=== PATIENT | female | born 1970 | race Caucasian/White ===

== ENCOUNTER 2017-04-21 11:18 | Emergency (ER) | payer SELFPAY ==
[~2017-04-21] VITALS: Ht 160 cm; Wt 93.9 kg
[~2017-04-21 11:18] MED LIST: ACETAMINOPHEN-H1 TA2 PO; BACTRIM DS 8001 TA1 PO; CLARITIN10 MG PO; CLEOCIN HCL150 MG PO; CLINDAMYCIN HC300 MG PO; COMBIVENT1 ARO IH; CORDROL20 MG PO; CYCLOBENZAPRINE5 M3 PO; DICLOFENAC SOD50 MG PO; DOXYCYCLINE MO100 MG PO; LEVOFLOXACIN500 MG PO; MEDROL DOSEPAK4 MG PO; Motrin,Rufen800 MG PO; PYRIDIUM200 M1 PO; TOPROL XL50 M1 PO; TOPROL XL50 MG PO; TRAMADOL HCL50 MG PO; TYLENOL W/CODEI1 TA2 PO; WELLBUTRIN75 MG PO; ZITHROMAX Z PA250 MG PO; ZYRTEC10 M3 PO
[2017-04-21] MEDS ORDERED: PYRIDIUM100 MG PO (11:33)
[2017-04-21] MEDS ORDERED: SEPTRA DS 800 M1 TAB PO (11:33)
[2017-04-21 11:45] LABS: BASO # 0.1 10*3/uL (0.0-0.1); BASO % 0.7 % (0.0-1.0); EOS # 0.1 10*3/uL (0.0-0.4); HEMATOCRIT 31.9 % (37.0-47.0); HEMOGLOBIN 9.6 g/dl (12.0-16.0); LYMPH # 2.3 10*3/uL (1.3-4.4); LYMPH % 23.3 % (27.0-41.0); MEAN CELL VOLUME 88.1 fl (81.0-99.0); MEAN CORPUSCULAR HGB 26.5 pg (27.0-31.0); MEAN CORPUSCULAR HGB CONC 30.1 g/dl (33.0-37.0); MEAN PLATELET VOLUME 10.6 fl (9.6-12.3); MONO # 0.8 10*3/uL (0.1-1.0); MONO % 8.1 % (3.0-9.0); NEUT # 6.5 10*3/uL (2.3-7.9); NEUT % 66.6 % (47.0-73.0); PLATELET COUNT AUTOMATED 324 10*3/uL (130-400); RED BLOOD COUNT 3.62 10*6/uL (4.10-5.10); RED CELL DISTRI WIDTH 16.2 % (0-14.5); WHITE BLOOD COUNT 9.8 10*3/uL (4.8-10.8)
[2017-04-21 11:47] LABS: BILIRUBIN 2+ (NEGATIVE); BLOOD 3+ (NEGATIVE); CLARITY CLOUDY (CLEAR); GLUCOSE TRACE (NEGATIVE); KETONE TRACE (NEGATIVE); LEUKO ESTERASE 3+ (NEGATIVE); NITRITE POSITIVE (NEGATIVE); PROTEIN 3+ (NEGATIVE); SPECIFIC GRAVITY 1.025 (1.005-1.030); UROBILINOGEN >= 8.0 E.U./dl (0.2-1.0)
[2017-04-21 12:05] LABS: COLOR ORANGE (YELLOW)
[2017-04-21 12:06] LABS: ALBUMIN 3.5 gm/dl (3.1-4.5); ALKALINE PHOSPHATASE 68 U/L (45-117); BILIRUBIN, TOTAL 0.2 mg/dl (0.2-1.0); BUN 9 mg/dl (7-24); CARBON DIOXIDE 26 mmol/L (21-32); CHLORIDE 106 mmol/L (98-107); EST GLOM FILT AFRICAN AMERICAN > 60 ml/min; GLUCOSE 87 mg/dL (65-99); POTASSIUM 4.5 mmol/L (3.5-5.1); SGOT/AST 24 IU/L (3-35); SGPT/ALT 12 U/L (12-78); SODIUM 140 mmol/L (136-145); TOTAL PROTEIN 7.2 gm/dL (6.4-8.2)
[2017-04-21 12:06] LABS: BACTERIA TRACE; RBC TNTC rbc/hpf (0-2); URINE REFLEX COMMENT YES (NO); WBC TNTC wbc/hpf (0-5)
== END 2017-04-21 13:53 | disposition home or self-care (01) ==
LOC: ED 11:18
PROVIDERS: Nurse Practitioner Family
DX: N39.0 Urinary tract infection, site not specified (principal); Z88.0 Allergy status to penicillin; Z88.6 Allergy status to analgesic agent; Z88.8 Allergy status to other drugs, medicaments and biological substances; Z87.891 Personal history of nicotine dependence; Z90.49 Acquired absence of other specified parts of digestive tract

== ENCOUNTER 2017-04-28 08:10 | Emergency (ER) | payer SELFPAY ==
[~2017-04-28] VITALS: Ht 160 cm; Wt 90.7 kg
[~2017-04-28 08:10] MED LIST changes: +PYRIDIUM100 MG PO; +SEPTRA DS 800 M1 TAB PO
[2017-04-28 08:58] LABS: BASO % 0.4 % (0.0-1.0); EOS # 0.1 10*3/uL (0.0-0.4); EOS % 0.6 % (1.0-4.0); HEMATOCRIT 32.2 % (37.0-47.0); HEMOGLOBIN 9.7 g/dl (12.0-16.0); LYMPH # 1.9 10*3/uL (1.3-4.4); LYMPH % 21.6 % (27.0-41.0); MEAN CORPUSCULAR HGB 26.2 pg (27.0-31.0); MEAN CORPUSCULAR HGB CONC 30.1 g/dl (33.0-37.0); MEAN PLATELET VOLUME 10.3 fl (9.6-12.3); MONO # 0.5 10*3/uL (0.1-1.0); MONO % 6.1 % (3.0-9.0); NEUT # 6.3 10*3/uL (2.3-7.9); NEUT % 71.1 % (47.0-73.0); PLATELET COUNT AUTOMATED 369 10*3/uL (130-400); RED CELL DISTRI WIDTH 16.4 % (0-14.5); WHITE BLOOD COUNT 8.9 10*3/uL (4.8-10.8)
[2017-04-28 09:14] LABS: ALBUMIN 3.8 gm/dl (3.1-4.5); ALKALINE PHOSPHATASE 71 U/L (45-117); BILIRUBIN, TOTAL 0.3 mg/dl (0.2-1.0); BUN 15 mg/dl (7-24); C-REACTIVE PROTEIN 0.64 MG/DL (0-0.3); CARBON DIOXIDE 27 mmol/L (21-32); CHLORIDE 109 mmol/L (98-107); EST GLOM FILT AFRICAN AMERICAN > 60 ml/min; GLUCOSE 88 mg/dL (65-99); MAGNESIUM 2.1 mg/dL (1.5-2.1); POTASSIUM 4.2 mmol/L (3.5-5.1); SGOT/AST 24 IU/L (3-35); SGPT/ALT 11 U/L (12-78); SODIUM 139 mmol/L (136-145); TOTAL PROTEIN 7.9 gm/dL (6.4-8.2)
[2017-04-28 09:34] LABS: BILIRUBIN NEGATIVE (NEGATIVE); BLOOD 2+ (NEGATIVE); CLARITY SL CLOUDY (CLEAR); COLOR YELLOW (YELLOW); GLUCOSE NEGATIVE (NEGATIVE); KETONE NEGATIVE (NEGATIVE); LEUKO ESTERASE 3+ (NEGATIVE); NITRITE NEGATIVE (NEGATIVE); PH 5.5 (5.0-9.0); PROTEIN TRACE (NEGATIVE); SPECIFIC GRAVITY 1.025 (1.005-1.030); UROBILINOGEN 0.2 E.U./dl (0.2-1.0)
[2017-04-28 09:59] LABS: BACTERIA 3+; RBC 21-30 rbc/hpf (0-2); URINE REFLEX COMMENT YES (NO); WBC TNTC wbc/hpf (0-5)
[2017-04-28] MEDS ORDERED: Motrin,Rufen800 MG PO ×2 (10:13→10:15)
[2017-04-28] MEDS ORDERED: CIPRO500 MG PO (10:13)
== END 2017-04-28 11:06 | disposition home or self-care (01) ==
LOC: ED 08:10
PROVIDERS: Emergency Medicine
DX: N39.0 Urinary tract infection, site not specified (principal); Z88.0 Allergy status to penicillin; Z88.6 Allergy status to analgesic agent; Z88.8 Allergy status to other drugs, medicaments and biological substances; Z87.891 Personal history of nicotine dependence

== ENCOUNTER 2017-05-24 06:05 | Emergency (ER) | payer OTHER ==
[~2017-05-24] VITALS: Ht 162.5 cm; Wt 68.0 kg
[~2017-05-24 06:05] MED LIST changes: +CIPRO500 MG PO
[2017-05-24 06:27] LABS: BILIRUBIN NEGATIVE (NEGATIVE); BLOOD 1+ (NEGATIVE); CLARITY SL CLOUDY (CLEAR); COLOR YELLOW (YELLOW); GLUCOSE NEGATIVE (NEGATIVE); KETONE NEGATIVE (NEGATIVE); LEUKO ESTERASE 1+ (NEGATIVE); NITRITE NEGATIVE (NEGATIVE); PH 5.5 (5.0-9.0); SPECIFIC GRAVITY >= 1.030 (1.005-1.030); UROBILINOGEN 0.2 E.U./dl (0.2-1.0)
[2017-05-24 06:33] LABS: EPITHELIAL CELLS 45-50
[2017-05-24 06:34] LABS: BACTERIA 1+; RBC 16-20 rbc/hpf (0-2); WBC 21-30 wbc/hpf (0-5)
[2017-05-24] MEDS ORDERED: MACROBID100 M1 PO (06:41)
[2017-05-24] MEDS ORDERED: PYRIDIUM200 M1 PO (06:41)
== END 2017-05-24 07:13 | disposition home or self-care (01) ==
LOC: ED 06:05
PROVIDERS: Emergency Medicine Emergency Medical Services
DX: N39.0 Urinary tract infection, site not specified (principal); I10 Essential (primary) hypertension; E66.9 Obesity, unspecified; Z90.49 Acquired absence of other specified parts of digestive tract; Z87.891 Personal history of nicotine dependence; Z88.0 Allergy status to penicillin; Z88.6 Allergy status to analgesic agent; Z88.5 Allergy status to narcotic agent

== ENCOUNTER 2017-05-26 11:59 | Emergency (ER) | payer OTHER ==
[~2017-05-26] VITALS: Wt 81.6 kg
[~2017-05-26 11:59] MED LIST changes: +MACROBID100 M1 PO
[2017-05-26 12:38] LABS: BILIRUBIN NEGATIVE (NEGATIVE); BLOOD 2+ (NEGATIVE); CLARITY SL CLOUDY (CLEAR); COLOR YELLOW (YELLOW); GLUCOSE TRACE (NEGATIVE); KETONE NEGATIVE (NEGATIVE); LEUKO ESTERASE 3+ (NEGATIVE); NITRITE POSITIVE (NEGATIVE); SPECIFIC GRAVITY <= 1.005 (1.005-1.030)
[2017-05-26 12:38] LABS: BASO # 0.1 10*3/uL (0.0-0.1); BASO % 0.6 % (0.0-1.0); EOS # 0.1 10*3/uL (0.0-0.4); HEMATOCRIT 28.4 % (37.0-47.0); HEMOGLOBIN 8.4 g/dl (12.0-16.0); LYMPH # 1.8 10*3/uL (1.3-4.4); LYMPH % 22.2 % (27.0-41.0); MEAN CELL VOLUME 85.8 fl (81.0-99.0); MEAN CORPUSCULAR HGB 25.4 pg (27.0-31.0); MEAN CORPUSCULAR HGB CONC 29.6 g/dl (33.0-37.0); MONO # 0.7 10*3/uL (0.1-1.0); MONO % 8.3 % (3.0-9.0); NEUT # 5.4 10*3/uL (2.3-7.9); NEUT % 67.6 % (47.0-73.0); PLATELET COUNT AUTOMATED 380 10*3/uL (130-400); RED BLOOD COUNT 3.31 10*6/uL (4.10-5.10)
[2017-05-26 12:47] LABS: BACTERIA 1+; WBC 31-40 wbc/hpf (0-5)
[2017-05-26 12:49] LABS: BUN 13 mg/dl (7-24); CHLORIDE 109 mmol/L (98-107); CREATININE 0.97 mg/dL (0.55-1.02); SODIUM 141 mmol/L (136-145)
[2017-05-26] MEDS ORDERED: PYRIDIUM200 M1 PO (13:52)
[2017-05-26] MEDS ORDERED: LEVOFLOXACIN500 MG PO (13:53)
== END 2017-05-26 14:01 | disposition home or self-care (01) ==
LOC: ED 11:59
PROVIDERS: Emergency Medicine
DX: N39.0 Urinary tract infection, site not specified (principal); I10 Essential (primary) hypertension; Z87.891 Personal history of nicotine dependence; Z90.49 Acquired absence of other specified parts of digestive tract; Z88.0 Allergy status to penicillin; Z88.6 Allergy status to analgesic agent; Z88.5 Allergy status to narcotic agent; Z88.8 Allergy status to other drugs, medicaments and biological substances

== ENCOUNTER 2017-06-14 09:48 | Inpatient (IN) | payer OTHER ==
[~2017-06-14] VITALS: Ht 167.6 cm; Wt 88.0 kg
[2017-06-14] VITALS (9 sets, daily range): BP systolic 84–145; BP diastolic 53–72
--- NOTE | ~2017-06-14 | O ---
[place], [place] OPERATIVE NOTE NAME: BETHEL VERAS UNIT #: [id number] ROOM: 507 DOCTOR[facility]AMUD [facility] BIRTH[facility] [birth year] DOS: GASTROENDOSCOPIC REPORT HISTORY OF PRESENT ILLNESS: A 47-year-old patient who has presented with chief complaint of guaiac positivity, epigastric distress. The patient has been on multiple nonsteroidal anti-inflammatory intake daily, IV ibuprofen 2-6 tablets daily. The patient has been avid consumer of carbonated beverages as well as . She is a nonsmoker. The patient was admitted with a low H and H of 7 and 24, status post multi-transfusion. Creatinine was 1.03. Electrolyte balance, liver function test balance, troponin negative. Chest x-ray consistent with right middle lobe pneumonia. CT scan of the abdomen and pelvis, no urinary tract calculi, no acute findings. Some air within the vagina. This is nonspecific, has been recent possibility of instrumentation, which we are not sure of the detail. The patient's urine culture has been 75,000 heavy gram-positive cocci. Her INR is 1.0. PAST MEDICAL HISTORY: Hypertension, obesity. PAST SURGICAL HISTORY: Appendectomy. SOCIAL HISTORY: Past smoker, nonalcohol consumer. FAMILY HISTORY: Diabetes. ALLERGIES: CODEINE, PENICILLIN, ASPIRIN AND DIPHENHYDRAMINE. MEDICATIONS: List has been reviewed. She is still taking ibuprofen 800 mg t.i.d., will be discontinued. PROCEDURE: Today's procedure part of investigation of anemia, guaiac positivity is panendoscopy and colonoscopy. PREMEDICATION: Versed and Diprivan. SCOPE: Olympus forward-viewing gastroscope Q10 video. REPORT: After putting the patient in the left lateral position and after application of lubricant to the scope, the scope was introduced. Thereafter, under direct visualization, I advanced through the length of esophagus without difficulty. A small hiatal hernia was noticed. Gastric pouch was entered. Multiple antral ulcerations were identified. Duodenum was entered. Duodenitis and multiple duodenal ulcers as well were noticed. Scope was withdrawn back to the antrum. Antral biopsy from margin of the ulcer was obtained. Scope was gradually withdrawn. The patient was extubated, tolerated procedure well. IMPRESSION: Multiple antral ulcers, duodenitis, duodenal ulcers, gastritis and small hiatal hernia. PLAN AND DISCUSSION: We are going to proceed with management of the above with [place], [place] OPERATIVE NOTE [facility]: [id number] UN[facility] #: [id number] ROOM: 507 DOCTOR: FRANCISCO JAVIER HERNANDEZ,BELA BIRTHDATE: [birth year] Protonix 40 mg IV b.i.d. with holding ibuprofen and sucralfate 2 grams a.c. and bedtime, bland soft diet. Followup on H and H. We are going to proceed with colonoscopy as well BELA MCINTYRE MD CM:OPRECORD:OPERATIVE NOTE 1217 1459 BELA MCINTYRE MD 06/15/17 1458 interface
--- NOTE | ~2017-06-14 | PROC NOTE ---
[place], [place] PROCEDURE NOTE NAME: BETHEL VERAS UNIT #: [id number] ROOM: 507 DOCTOR: MAK LYN BIRTHDATE: [birth year] DOS: 06/16/2017 MODIFIED BARIUM SWALLOW LOCATION: [facility], room 507, bed 2. ORDERING PHYSICIAN: Dr. Watkins. RADIOLOGIST: Dr. Carias. BACKGROUND INFORMATION: The patient, a 47-year-old female was seen for modified barium swallow. This test was ordered to rule out aspiration. The patient is diagnosed with pneumonia. Further medical history includes UTI. The patient was admitted to the Emergency Department with abdominal pain. The patient reported suffering a UTI since 04/21. She was also experiencing nausea and hypotension. The patient currently receives a regular diet and thin liquids. For today's assessment, she was alert and able to follow all commands. Congested respiratory status was displayed. Oral peripheral examination revealed presence of natural teeth which were in good condition. Oral motor skills were within normal limits in terms of strength, range of motion, and coordination. The patient was able to volitionally cough and swallow. METHODS AND MATERIALS USED FOR THE EXAM: The patient was positioned in the lateral plane and the exam was viewed under fluoroscopy. The patient was presented with a variety of consistencies to assess swallowing skills including applesauce mixed with barium presented in half teaspoon amounts, barium-coated sandwich presented in bite size pieces and thin liquid barium taken by cup and straw. The patient was given the cup and she swallowed in single sip size amounts. ORAL PHASE: Unremarkable. PHARYNGEAL PHASE: Unremarkable. ESOPHAGEAL PHASE: This phase of the swallow was not formally assessed during this exam. IMPRESSIONS AND RECOMMENDATIONS: Based upon assessment results, this 47-year-old patient presents with swallowing skills that are within normal limits. No oral difficulty was displayed. The patient swallowed all consistencies in a timely manner with no penetration and aspiration and no residue in the pharynx. Recommend she remain on present diet. No followup therapy is warranted. Results and recommendations were shared with the patient and she verbalized understanding. Thank you very much for this referral. Should you have any questions regarding this patient, please contact the speech pathologist at [phone]. [place], [place] PROCEDURE NOTE NAME: BETHEL VERAS UNIT #: [id number] ROOM: 7 DOCTOR: MAK LYN BIRTHDATE: [birth year] MAK LYN KRYSTAL WATKINS DO CM:MALDONADO:PROCEDURE NOTE 0945 40 MAK LYN
--- NOTE | ~2017-06-14 | O ---
[place], [place] OPERATIVE NOTE NAME: BETHEL VERAS UNIT #: [id number] ROOM: 507 DOCTOR: FRANCISCO JAVIER HERNANDEZ,BELA BIRTHDATE: [birth year] DOS: GASTROENDOSCOPIC COLONOSCOPY REPORT PROCEDURE: Today's procedure part of investigation is colonoscopy. PREMEDICATION: Versed and Diprivan. SCOPE: Olympus forward-viewing colonoscope 10L video. REPORT: After putting the patient in the left lateral position and after application of lubricant to rectal pouch and digital examination, scope was introduced. Thereafter, under direct visualization, I advanced through the length of colon without difficulty. Base of the cecum explored. Appendiceal orifice identified and ileocecal valve was defined. No acute pathology in the colon identified. The patient extubated, tolerated procedure well. IMPRESSION: Normal colonoscopic examination, guaiac positivity secondary to multiple antral ulcer, duodenal ulcer and duodenitis, which is addressed. PLAN AND DISCUSSION: This patient is also complaining of metrorrhagia history with heavy bleedings about at least 2 weeks per month. This requires to have sonographic study of the uterus to sure no point of concern in the uterine cavity. This is going to be organized as an inpatient sonographically. I am sure she requires [facility] services and [facility] and addressing just above matter in addition to her GI system. The patient is at the present time in an inpatient setting. Thank you very much indeed. BELA MCINTYRE MD CM:OPRECORD:OPERATIVE NOTE 1217 1515 BELA MCINTYRE MD 06/15/17 1644 interface
[2017-06-14 10:21] LABS: BILIRUBIN 2+ (NEGATIVE); BLOOD 3+ (NEGATIVE); CLARITY CLOUDY (CLEAR); COLOR BROWN (YELLOW); GLUCOSE NEGATIVE (NEGATIVE); KETONE 2+ (NEGATIVE); NITRITE POSITIVE (NEGATIVE); PH 5.5 (5.0-9.0); SPECIFIC GRAVITY >= 1.030 (1.005-1.030)
[2017-06-14 10:29] LABS: LEUKO ESTERASE 2+ (NEGATIVE)
[2017-06-14 10:35] LABS: WBC 51-100 wbc/hpf (0-5)
[2017-06-14 10:36] LABS: BACTERIA 3+; RBC TNTC rbc/hpf (0-2)
[2017-06-14 10:46] LABS: BASO # 0.1 10*3/uL (0.0-0.1); BASO % 0.6 % (0.0-1.0); EOS % 0.3 % (1.0-4.0); HEMATOCRIT 24.3 % (37.0-47.0); HEMOGLOBIN 7.2 g/dl (12.0-16.0); LYMPH # 1.5 10*3/uL (1.3-4.4); LYMPH % 17.4 % (27.0-41.0); MEAN CELL VOLUME 83.8 fl (81.0-99.0); MEAN CORPUSCULAR HGB 24.8 pg (27.0-31.0); MEAN CORPUSCULAR HGB CONC 29.6 g/dl (33.0-37.0); MEAN PLATELET VOLUME 10.6 fl (9.6-12.3); MONO # 0.6 10*3/uL (0.1-1.0); MONO % 6.3 % (3.0-9.0); NEUT # 6.5 10*3/uL (2.3-7.9); NEUT % 75.1 % (47.0-73.0); PLATELET COUNT AUTOMATED 363 10*3/uL (130-400); RED CELL DISTRI WIDTH 16.7 % (0-14.5); WHITE BLOOD COUNT 8.7 10*3/uL (4.8-10.8)
[2017-06-14 11:00] LABS: ALBUMIN 3.5 gm/dl (3.1-4.5); ALKALINE PHOSPHATASE 73 U/L (45-117); BUN 15 mg/dl (7-24); CHLORIDE 107 mmol/L (98-107); CREATININE 1.03 mg/dL (0.55-1.02); POTASSIUM 4.2 mmol/L (3.5-5.1); SGOT/AST 20 IU/L (3-35); SGPT/ALT 9 U/L (12-78); SODIUM 140 mmol/L (136-145); TOTAL PROTEIN 7.5 gm/dL (6.4-8.2)
--- NOTE | 2017-06-14 12:49 | NUR ---
PULSE OX AT 88% ON ROOM AIR. STARTED ON 2L OF O2, PULSE OX NOW UP TO 98%.
--- NOTE | 2017-06-14 13:50 | NUR ---
Time: 1349 A 47 year old FEMALE admitted to 5E under services of KRYSTAL MANNING DO, Pt. arrived via stretcher from ER. Chief complaint: URINARY TRACT INFECTION, ANEMIA, PNEUMONIA. KRISTI PRYOR
--- NOTE | 2017-06-14 15:16 | NUR ---
CONSULT CALLED TO DR MCINTYRE.
[2017-06-14] MEDS ORDERED: LOPRESSOR50 M1 PO (15:35)
--- NOTE | 2017-06-14 15:49 | NUR ---
DR MOCK WAS NOTIFIED OF PATIENT FROM ER, MED LIST OBTAINED FROM PHARMACY AND IN FOR REVIEW. dR. MCLEOD WAS NOTIFIED OF CONSULT D/T +BLOOD IN STOOL. STATED WILL HAVE EGD AND COLONOSCOPY TOMORROW. START BOWEL PREP TONIGHT. DR MELTON WAS ON FLOOR AND STATED IS WORKING WITH DR. MCLEOD AND IS AWARE OF THE ORDERS.
--- NOTE | 2017-06-14 19:18 | NUR ---
PT DID NOT WANT A PRN BREATHING TX AT THIS TIME. PT STATES SHE IS COUGHING UP YELLOW SPUTUM. INFORMED TO CALL AT ANY TIME TONIGHT IF SHE GETS SOB OR FEELS WHEEZY. SPO2 96%
--- NOTE | 2017-06-14 20:23 | NUR ---
PATIENT RESTING IN BED WATCHING TV. NO NEEDS MADE. BED IN LOWEST POSITION, CALL LIGHT IN REACH
[2017-06-15] VITALS (7 sets, daily range): BP systolic 118–155; BP diastolic 57–74
--- NOTE | 2017-06-15 01:50 | NUR ---
24 HR chart check completed.
[2017-06-15 06:32] LABS: BASO % 0.4 % (0.0-1.0); EOS # 0.2 10*3/uL (0.0-0.4); HEMATOCRIT 25.2 % (37.0-47.0); HEMOGLOBIN 7.7 g/dl (12.0-16.0); LYMPH # 1.4 10*3/uL (1.3-4.4); LYMPH % 17.6 % (27.0-41.0); MEAN CELL VOLUME 82.9 fl (81.0-99.0); MEAN CORPUSCULAR HGB 25.3 pg (27.0-31.0); MEAN CORPUSCULAR HGB CONC 30.6 g/dl (33.0-37.0); MEAN PLATELET VOLUME 10.6 fl (9.6-12.3); MONO # 0.7 10*3/uL (0.1-1.0); MONO % 8.3 % (3.0-9.0); NEUT # 5.7 10*3/uL (2.3-7.9); NEUT % 71.4 % (47.0-73.0); PLATELET COUNT AUTOMATED 325 10*3/uL (130-400); RED BLOOD COUNT 3.04 10*6/uL (4.10-5.10); RED CELL DISTRI WIDTH 16.4 % (0-14.5); WHITE BLOOD COUNT 7.9 10*3/uL (4.8-10.8)
[2017-06-15 07:06] LABS: ALBUMIN 2.9 gm/dl (3.1-4.5); BUN 7 mg/dl (7-24); CHLORIDE 113 mmol/L (98-107); MAGNESIUM 1.8 mg/dL (1.5-2.1); POTASSIUM 3.5 mmol/L (3.5-5.1); SGOT/AST 17 IU/L (3-35); SGPT/ALT 6 U/L (12-78); SODIUM 144 mmol/L (136-145); TOTAL PROTEIN 6.4 gm/dL (6.4-8.2)
[2017-06-15 07:11] LABS: ACT PARTIAL THROMBO TIME 23.7 SECONDS (20.8-31.5); INTERNATIONAL NORM RATIO 1.1 (2.0-3.5)
[2017-06-15 07:13] LABS: ALKALINE PHOSPHATASE 64 U/L (45-117); CREATININE 0.75 mg/dL (0.55-1.02); FREE T4 1.19 ng/dl (0.76-1.46)
[2017-06-15 07:31] LABS: VITAMIN D, 25-HYDROXY 30.4 ng/mL (30-100)
--- NOTE | 2017-06-15 09:00 | NUR ---
[employer] in to talk to patient. Patient states lives at home with alone. There are no steps in the home. Physician: amara ramos Pharmacy: [facility] Home health services: none Patient's level of ADLs: INDEPENDENT Patient has working utilities: all working DME: none Follow-up physician's appointment after d/c: will be made by hospitalist nurse director upon discharge Does patient want to access PORTAL?: no Discharge plan discussed with patient, patient lives at [facility] in a dorm, she is independent in adls and ambulation, drives, patient states she will be returning to the dorm when able and denies any home needs. TAMAR FIERRO
--- NOTE | 2017-06-15 13:08 | NUR ---
SPEECH PATHOLOGY Orders for MBS were received. Patient was scheduled for 1:00 this date however a message was received from X-ray that patient was scheduled for surgery. Clinician spoke with patient's nurse who stated that patient is still in surgery at this time. As it is not known when patient will be returning from surgery and will be coming off medication given, it is recommended that MBS be conducted tomorrow to ensure that patient is alert enough to safely consume oral intake. Patient's nurse verbalized understanding. Clincian spoke with x-ray to inform them and the procedure was rescheduled for 9:00 am tomorrow. Results and raul. will follow the procedure tomorrow. Thank you for this referral. MAK LYN [facility]-SUBSYSTEMS ENGINEER
[2017-06-16] VITALS: BP 118/48
[2017-06-16 06:47] LABS: BASO % 0.4 % (0.0-1.0); EOS # 0.2 10*3/uL (0.0-0.4); HEMATOCRIT 24.4 % (37.0-47.0); HEMOGLOBIN 7.4 g/dl (12.0-16.0); LYMPH # 1.7 10*3/uL (1.3-4.4); LYMPH % 22.8 % (27.0-41.0); MEAN CELL VOLUME 83.3 fl (81.0-99.0); MEAN CORPUSCULAR HGB 25.3 pg (27.0-31.0); MEAN CORPUSCULAR HGB CONC 30.3 g/dl (33.0-37.0); MEAN PLATELET VOLUME 10.2 fl (9.6-12.3); MONO # 0.7 10*3/uL (0.1-1.0); MONO % 9.5 % (3.0-9.0); NEUT # 4.9 10*3/uL (2.3-7.9); PLATELET COUNT AUTOMATED 319 10*3/uL (130-400); RED BLOOD COUNT 2.93 10*6/uL (4.10-5.10); RED CELL DISTRI WIDTH 16.4 % (0-14.5); WHITE BLOOD COUNT 7.6 10*3/uL (4.8-10.8)
[2017-06-16 07:28] LABS: BUN 6 mg/dl (7-24); CHLORIDE 110 mmol/L (98-107); CREATININE 0.73 mg/dL (0.55-1.02); SODIUM 144 mmol/L (136-145)
[2017-06-16 08:00] VITALS: BP 118/44
--- NOTE | 2017-06-16 09:00 | NUR ---
case management visits with patient, patient denies any home needs at this time
--- NOTE | 2017-06-16 09:36 | NUR ---
SPEECH PATHOLOGY MBS completed as per orders. Patient demonstrated oral and pharyngeal swallowing skills that were WNL. Recommend she remain on present diet. No follow up therapy is warranted. Results and raul. were shared with patient who verbalized understanding. Will inform patient's nurse as well. Dictated report to follow. Thank you for this referral. MAK LYN [facility]-COUNT[facility] SHERIFF
[2017-06-16] MEDS ORDERED: CARAFATE1 G1 PO (12:13)
[2017-06-16] MEDS ORDERED: PROTONIX40 MG PO (12:13)
[2017-06-16] MEDS ORDERED: LOPRESSOR50 M1 PO (12:13)
[2017-06-16] MEDS ORDERED: LEVAQUIN750 M1 PO (12:13)
--- NOTE | 2017-06-16 12:31 | NUR ---
Discharge instructions reviewed with patient/family. Patient receptive and verbalizes understanding. Follow-up care arranged. Written instructions given to patient/family. HEPLOCK REMOVED. PATIENT PICKED UP BY FAMILY AND AMBULATORY OFF FLOOR AT THIS TIME. BAILEY CABEZAS
== END 2017-06-16 12:34 | disposition home or self-care (01) | DRG 377 ==
LOC: ED 09:48 → EDHOLD 12:21 → 5E 12:21
PROVIDERS: Emergency Medicine; Internal Medicine; ADMIT Internal Medicine
DX: K92.2 Gastrointestinal hemorrhage, unspecified (principal); J18.1 Lobar pneumonia, unspecified organism; N39.0 Urinary tract infection, site not specified; K27.9 Peptic ulcer, site unspecified, unspecified as acute or chronic, without hemorrhage or perforation; D64.9 Anemia, unspecified; K25.9 Gastric ulcer, unspecified as acute or chronic, without hemorrhage or perforation; K44.9 Diaphragmatic hernia without obstruction or gangrene; K29.80 Duodenitis without bleeding; K29.70 Gastritis, unspecified, without bleeding; R00.1 Bradycardia, unspecified; I10 Essential (primary) hypertension; E66.9 Obesity, unspecified; K26.9 Duodenal ulcer, unspecified as acute or chronic, without hemorrhage or perforation; N92.1 Excessive and frequent menstruation with irregular cycle; Z87.891 Personal history of nicotine dependence; Z82.3 Family history of stroke; Z78.9 Other specified health status; Z80.1 Family history of malignant neoplasm of trachea, bronchus and lung; Z83.3 Family history of diabetes mellitus; Z88.6 Allergy status to analgesic agent; Z88.0 Allergy status to penicillin; Z88.5 Allergy status to narcotic agent; Z88.8 Allergy status to other drugs, medicaments and biological substances; Z79.899 Other long term (current) drug therapy; Z68.30 Body mass index [BMI] 30.0-30.9, adult

== ENCOUNTER → 2017-06-21 | Outpatient (CLI) | payer OTHER ==
[~2017-06-21] MED LIST changes: +CARAFATE1 G1 PO; +LEVAQUIN750 M1 PO; +LOPRESSOR50 M1 PO; +PROTONIX40 MG PO
== END | disposition home or self-care (01) ==
LOC: US 06-17 15:00
DX: R10.2 Pelvic and perineal pain (principal)

== ENCOUNTER 2018-03-30 16:01 | Emergency (ER) | payer OTHER ==
[~2018-03-30] VITALS: Ht 162.5 cm; Wt 77.1 kg
[2018-03-30 16:23] LABS: BILIRUBIN NEGATIVE (NEGATIVE); BLOOD NEGATIVE (NEGATIVE); CLARITY CLEAR (CLEAR); COLOR YELLOW (YELLOW); GLUCOSE NEGATIVE (NEGATIVE); KETONE NEGATIVE (NEGATIVE); LEUKO ESTERASE TRACE (NEGATIVE); NITRITE NEGATIVE (NEGATIVE); SPECIFIC GRAVITY <= 1.005 (1.005-1.030); UROBILINOGEN 0.2 E.U./dl (0.2-1.0)
[2018-03-30 16:52] LABS: BACTERIA TRACE
[2018-03-30] MEDS ORDERED: ANAPROX DS550 MG PO (17:30)
[2018-03-30] MEDS ORDERED: ROBAXIN500 M1 PO (17:30)
== END 2018-03-30 17:34 | disposition home or self-care (01) ==
LOC: ED 16:01
PROVIDERS: Physician Assistant
DX: M47.896 Other spondylosis, lumbar region (principal); R35.0 Frequency of micturition; Z88.0 Allergy status to penicillin; Z88.6 Allergy status to analgesic agent; Z88.8 Allergy status to other drugs, medicaments and biological substances; Z87.891 Personal history of nicotine dependence

== ENCOUNTER 2018-11-27 15:05 | Emergency (ER) | payer OTHER ==
[~2018-11-27] VITALS: Ht 160 cm; Wt 81.6 kg
[~2018-11-27 15:05] MED LIST changes: +ANAPROX DS550 MG PO; +ROBAXIN500 M1 PO
[2018-11-27 16:35] LABS: BASO % 0.4 % (0.0-1.0); HEMATOCRIT 39.1 % (37.0-47.0); HEMOGLOBIN 13.2 g/dl (12.0-16.0); LYMPH # 0.9 10*3/uL (1.3-4.4); MEAN CORPUSCULAR HGB 33.4 pg (27.0-31.0); MEAN CORPUSCULAR HGB CONC 33.8 g/dl (33.0-37.0); MEAN PLATELET VOLUME 10.3 fl (9.6-12.3); MONO # 0.9 10*3/uL (0.1-1.0); NEUT # 9.3 10*3/uL (2.3-7.9); NEUT % 83.2 % (47.0-73.0); PLATELET COUNT AUTOMATED 224 10*3/uL (130-400); RED BLOOD COUNT 3.95 10*6/uL (4.10-5.10); RED CELL DISTRI WIDTH 12.5 % (0-14.5); WHITE BLOOD COUNT 11.2 10*3/uL (4.8-10.8)
[2018-11-27] MEDS ORDERED: DOXYCYCLINE100 MG PO (16:48)
[2018-11-27] MEDS ORDERED: PROAIR HFA8.5 GM INH (16:48)
[2018-11-27 17:03] LABS: ALBUMIN 3.3 gm/dl (3.1-4.5); ALKALINE PHOSPHATASE 79 U/L (45-117); BUN 12 mg/dl (7-24); CHLORIDE 101 mmol/L (98-107); CREATININE 0.82 mg/dL (0.55-1.02); LIPASE 114 U/L (73-393); POTASSIUM 3.5 mmol/L (3.5-5.1); SGOT/AST 14 IU/L (3-35); SGPT/ALT 11 U/L (12-78); SODIUM 136 mmol/L (136-145); TOTAL PROTEIN 7.5 gm/dL (6.4-8.2)
[2018-11-27 17:12] LABS: BILIRUBIN NEGATIVE (NEGATIVE); BLOOD 1+ (NEGATIVE); CLARITY SL CLOUDY (CLEAR); COLOR YELLOW (YELLOW); GLUCOSE NEGATIVE (NEGATIVE); KETONE NEGATIVE (NEGATIVE); LEUKO ESTERASE TRACE (NEGATIVE); NITRITE NEGATIVE (NEGATIVE); PH 5.5 (5.0-9.0); SPECIFIC GRAVITY >= 1.030 (1.005-1.030); UROBILINOGEN 0.2 E.U./dl (0.2-1.0)
[2018-11-27 17:21] LABS: BACTERIA 1+; MUCOUS TRACE
== END 2018-11-27 18:11 | disposition home or self-care (01) ==
LOC: ED 15:05
PROVIDERS: Physician Assistant
DX: J18.9 Pneumonia, unspecified organism (principal); I10 Essential (primary) hypertension; Z88.0 Allergy status to penicillin; Z88.6 Allergy status to analgesic agent; Z88.8 Allergy status to other drugs, medicaments and biological substances; Z87.891 Personal history of nicotine dependence

== ENCOUNTER 2019-01-06 12:45 | Emergency (ER) | payer OTHER ==
[~2019-01-06] VITALS: Ht 162.5 cm; Wt 86.2 kg
--- NOTE | ~2019-01-06 | EKG ---
[place], [place] ELECTROCARDIOGRAM REPORT NAME: BETHEL VERAS UNIT #: [id number] ROOM: DOCTOR: EPIPHANY DRAFT REPORT BIRTHDATE: [birth year] [facility] Test Date: 2019-01-06 Test Time: 13:49:56 Pat Name: BETHEL VERAS Department: ER Room: Gender: F Aviation Maintenance Technician: : 1970 Requested By: ALESHA VIDAL PA-C Order Number: [id number] Reading MD: Cole Newman MD Measurements Intervals [place] Rate: 57 P: NE: QRS: 45 QRSD: 83 T: 32 QT: 431 QTc: 420 Interpretive Statements Atrial fibrillation Electronically Signed On 01-11-2019 14:29:43 PDT by Cole Newman MD CM:EKGRPT:ELECTROCARDIOGRAM REPORT 1349 1429 ALESHA VIDAL PA-C EPIPHANY DRAFT REPORT ALESHA VIDAL PA-C
[~2019-01-06 12:45] MED LIST changes: +DOXYCYCLINE100 MG PO; +PROAIR HFA8.5 GM INH
[2019-01-06 13:58] LABS: BASO # 0.1 10*3/uL (0.0-0.1); BASO % 0.7 % (0.0-1.0); EOS # 0.1 10*3/uL (0.0-0.4); HEMATOCRIT 41.5 % (37.0-47.0); HEMOGLOBIN 13.8 g/dl (12.0-16.0); LYMPH # 1.4 10*3/uL (1.3-4.4); LYMPH % 20.5 % (27.0-41.0); MEAN CORPUSCULAR HGB 33.6 pg (27.0-31.0); MEAN CORPUSCULAR HGB CONC 33.3 g/dl (33.0-37.0); MEAN PLATELET VOLUME 10.6 fl (9.6-12.3); MONO # 0.6 10*3/uL (0.1-1.0); MONO % 9.2 % (3.0-9.0); NEUT # 4.6 10*3/uL (2.3-7.9); NEUT % 66.9 % (47.0-73.0); PLATELET COUNT AUTOMATED 239 10*3/uL (130-400); RED BLOOD COUNT 4.11 10*6/uL (4.10-5.10); RED CELL DISTRI WIDTH 12.9 % (0-14.5); WHITE BLOOD COUNT 6.9 10*3/uL (4.8-10.8)
[2019-01-06 14:08] LABS: BILIRUBIN NEGATIVE (NEGATIVE); BLOOD NEGATIVE (NEGATIVE); CLARITY CLEAR (CLEAR); COLOR YELLOW (YELLOW); GLUCOSE NEGATIVE (NEGATIVE); KETONE NEGATIVE (NEGATIVE); LEUKO ESTERASE 1+ (NEGATIVE); NITRITE NEGATIVE (NEGATIVE); PH 6.5 (5.0-9.0); SPECIFIC GRAVITY <= 1.005 (1.005-1.030); UROBILINOGEN 0.2 E.U./dl (0.2-1.0)
[2019-01-06 14:13] LABS: ALBUMIN 3.6 gm/dl (3.1-4.5); ALKALINE PHOSPHATASE 85 U/L (45-117); BUN 13 mg/dl (7-24); CHLORIDE 111 mmol/L (98-107); CREATININE 0.79 mg/dL (0.55-1.02); POTASSIUM 4.2 mmol/L (3.5-5.1); SGOT/AST 13 IU/L (3-35); SGPT/ALT 12 U/L (12-78); SODIUM 143 mmol/L (136-145); TOTAL PROTEIN 7.6 gm/dL (6.4-8.2)
[2019-01-06 14:14] LABS: BACTERIA 1+
[2019-01-06] MEDS ORDERED: MACROBID100 M1 PO (14:32)
== END 2019-01-06 14:32 | disposition home or self-care (01) ==
LOC: ED 12:45
PROVIDERS: Physician Assistant
DX: N39.0 Urinary tract infection, site not specified (principal); I10 Essential (primary) hypertension; R05 Cough; Z88.0 Allergy status to penicillin; Z88.5 Allergy status to narcotic agent; Z88.6 Allergy status to analgesic agent; Z88.8 Allergy status to other drugs, medicaments and biological substances; Z79.2 Long term (current) use of antibiotics; Z79.899 Other long term (current) drug therapy; Z90.49 Acquired absence of other specified parts of digestive tract; Z87.891 Personal history of nicotine dependence

== ENCOUNTER 2019-02-18 05:37 | Emergency (ER) | payer OTHER ==
[~2019-02-18] VITALS: Ht 165.1 cm; Wt 86.2 kg
[2019-02-18] MEDS ORDERED: CLARITIN10 MG PO (05:53)
[2019-02-18] MEDS ORDERED: FLONASE ALLERG9.9 ML NAS (05:53)
== END 2019-02-18 06:08 | disposition home or self-care (01) ==
LOC: ED 05:37
DX: R05 Cough (principal); R09.81 Nasal congestion; E66.9 Obesity, unspecified; Z88.0 Allergy status to penicillin; Z88.5 Allergy status to narcotic agent; Z88.8 Allergy status to other drugs, medicaments and biological substances; Z88.6 Allergy status to analgesic agent; Z79.899 Other long term (current) drug therapy; Z79.2 Long term (current) use of antibiotics; Z90.49 Acquired absence of other specified parts of digestive tract; Z87.891 Personal history of nicotine dependence

== ENCOUNTER 2019-12-01 05:24 | Emergency (ER) | payer SELFPAY ==
[~2019-12-01] VITALS: Ht 160 cm; Wt 86.2 kg
[~2019-12-01 05:24] MED LIST changes: +FLONASE ALLERG9.9 ML NAS
[2019-12-01] MEDS ORDERED: METOPROLOL25 MG PO (05:29)
[2019-12-01] MEDS ORDERED: LEVOFLOXACIN500 MG PO (06:35)
[2019-12-01] MEDS ORDERED: VENT7GM INH (06:35)
== END 2019-12-01 06:48 | disposition home or self-care (01) ==
LOC: ED 05:24
DX: J18.9 Pneumonia, unspecified organism (principal); I10 Essential (primary) hypertension; Z88.0 Allergy status to penicillin; Z88.5 Allergy status to narcotic agent; Z88.8 Allergy status to other drugs, medicaments and biological substances; Z90.49 Acquired absence of other specified parts of digestive tract

== ENCOUNTER 2020-12-04 23:50 | Emergency (ER) | payer SELFPAY ==
[~2020-12-04] VITALS: Ht 160 cm; Wt 87.5 kg
[~2020-12-04 23:50] MED LIST changes: +METOPROLOL25 MG PO; +VENT7GM INH
[2020-12-05] MEDS ORDERED: ATORVASTATIN CA10 M1 PO (00:09)
[2020-12-05] MEDS ORDERED: GOOD NEIGHBOR L10 MG PO (00:09)
[2020-12-05 00:11] LABS: BILIRUBIN Negative (Negative); BLOOD Negative (Negative); CLARITY Clear (Clear); COLOR Yellow (Yellow); GLUCOSE Negative (Negative); KETONE Negative (Negative); LEUKO ESTERASE 1+ (Negative); NITRITE Negative (Negative); PH 5.5 (4.5-8.0); SPECIFIC GRAVITY 1.025 (1.001-1.030)
[2020-12-05] MEDS ORDERED: CYCLOBENZAPRINE10 MG PO (02:37)
[2020-12-05] MEDS ORDERED: PREDNISONE20 M1 PO (02:37)
== END 2020-12-05 02:45 | disposition home or self-care (01) ==
LOC: ED 23:50
PROVIDERS: Emergency Medicine
DX: M51.36 Other intervertebral disc degeneration, lumbar region (principal); I10 Essential (primary) hypertension; J44.9 Chronic obstructive pulmonary disease, unspecified; E66.9 Obesity, unspecified; Z88.0 Allergy status to penicillin; Z88.8 Allergy status to other drugs, medicaments and biological substances; Z88.5 Allergy status to narcotic agent; Z79.899 Other long term (current) drug therapy; Z90.49 Acquired absence of other specified parts of digestive tract